=== PATIENT | female | born 1995 | race Caucasian/White ===

== ENCOUNTER 2022-09-25 07:57 | Outpatient (CLI) | payer BC ==
--- NOTE | 2022-09-25 09:48 | Ultrasound Report ---
PROCEDURE: Pelvic w/Transvaginal INDICATIONS: RETAINED PRODUCTS OF CONCEPTION TECHNIQUE: Real-time scanning was performed of the pelvic organs, with image documentation. Additional endovagi nal scanning was necessary due to incomplete visualization of the adnexal and endometrial structures by transabdominal scanning. COMPARISON: None. FINDINGS: Uterus: Uterus is anteverted and normal in size at 8.9 x 4.4 x 5.7 cm. The myometrium is heterogene ous. The endometrium measures 16 mm in combined thickness. Hypervascularity is present. There is fl uid in the cervical canal. Ovaries: Right ovary measures a volume of 11 cc. Left ovary measures a volume 118 cc. Left ovarian cy sts containing internal echoes measuring up to 4.8 cm. No definite solid component identified otherwi se. Other: No pathologic free abdominal or pelvic fluid. IMPRESSION: Heterogeneous, borderline thickened endometrium with hypervascularity could represent in flammation following gestation versus a small amount of retained products. Follow-up is recommended. Small amount of fluid is seen within the cervical canal. Left ovarian cyst with debris measuring up to 4.8 cm. Attention on follow-up. Reviewed by: Jorge Luis Aparicio MD on 09/25/2022 9:46 AM PST Approved by: Jorge Luis Aparicio MD on 09/25/2022 9:46 AM PST Station ID: [id number]
== END 2022-09-25 07:58 | disposition home or self-care (01) ==
LOC: DI 07:57
PROVIDERS: ATTEND Midwife
DX: O03.4 Incomplete spontaneous abortion without complication (principal)

== ENCOUNTER 2022-10-05 16:02 | Outpatient (CLI) | payer BC ==
--- NOTE | 2022-10-05 19:30 | Ultrasound Report ---
PROCEDURE: Pelvic w/Transvaginal INDICATIONS: POC TECHNIQUE: Real-time scanning was performed of the pelvic organs, with image documentation. Additional endovagi nal scanning was necessary due to incomplete visualization of the adnexal and endometrial structures by transabdominal scanning. COMPARISON: Ultrasound pelvis 09/25/2022. FINDINGS: Uterus: Uterus is anteverted and measures 8.1 x 4.5 x 5 cm. Endometrium demonstrates persistent hete rogeneous thickening, measuring up to 1.3 cm with internal vascularity on color Doppler interrogation . Ovaries: The right ovary measures 3.7 x 2.1 x 4.2 cm, with a calculated ovarian volume of 60.9 cc. The left ovary measures 5.8 x 5.3 x 5.6 cm, with a calculated ovarian volume of 89.3 cc. The ovaries have a normal sonographic appearance. Less than 12 follicles can be seen in each ovary. No adnexal masses. There is a left ovarian cyst measuring up to 5.6 x 4.4 x 5.4 cm with foci of internal echoge esthela debris. Other: No pathologic free abdominal or pelvic fluid. IMPRESSION: 1. Persistent heterogeneous thickening of the endometrium with internal vascularity. The findings are suspicious for persistent retained products of conception. 2. Complex left ovarian cyst with internal debris redemonstrated. Recommend continued short-term foll ow-up to demonstrate resolution. Reviewed by: Geovanni Butt MD on 10/05/2022 7:29 PM PST Approved by: Geovanni Butt MD on 10/05/2022 7:29 PM PST Station ID: [id number]
== END 2022-10-05 16:03 | disposition home or self-care (01) ==
LOC: DI 16:02
PROVIDERS: ATTEND Midwife
DX: O03.9 Complete or unspecified spontaneous abortion without complication (principal); N83.292 Other ovarian cyst, left side